=== PATIENT | male | born 1930 | race Caucasian/White ===

== ENCOUNTER 2017-02-10 16:33 | Emergency (ER) | payer MEDICARE ==
[2017-02-10] MEDS ORDERED: ceFAZolin VIAL(*) 1 GM in NS 0.9% 50 ML* 50 ML IVPB ONE (18:01)
--- NOTE | 2017-02-10 18:20 | RAD ---
Indication: Left middle finger injury. 3 views of the middle finger demonstrates comminuted fracture distal tuft of the distal phalanx of the middle finger on the left hand. IMPRESSION: Comminuted fracture of the distal tip of the middle finger of the left hand.
[2017-02-10] MEDS ORDERED: Tetan/Diph/Pertus SYR(Tdap)* 0.5 ML SYR(BOOSTRIX) use SYR IM ONE (19:20)
--- NOTE | 2017-02-10 19:20 | ED ---
Laceration/Wound HPI - HPI Summary HPI Summary: 86M presents with left middle finger laceration s/p getting it caught on table saw. He does not know when last tetanus was. He has full ROM of his finger. He is on plavix. Bleeding is controlled at moment. He denies any numbness or tingling. He has not taken anything for pain. He is currently taking flexeril at home for his shoulder pain. He is right handed. He denies any foreign body in wound. - History of Current Complaint Stated Complaint: FINGER LAC FROM SAW Time Seen by Provider: 02/10/17 17:07 Pain Intensity: 0 - Additional Pertinent History Primary Care Physician: [id number] - Allergy/Home Medications Allergies/Adverse Reactions: Allergies Allergy/AdvReac Type Severity Reaction Status Date / Time No Known Allergies Allergy Verified 03/18/16 22:39 PMH/Surg Hx/FS Hx/Imm Hx Endocrine/Hematology History: Reports: Hx Anticoagulant Therapy, Hx Diabetes - NIDDM Cardiovascular History: Reports: Hx Angina, Hx Coronary Artery Disease, Hx Hypercholesterolemia, Hx Hypertension, Hx Myocardial Infarction, Hx Valvular Heart Disease - AORTIC VALVE STENOSIS, Other Cardiovascular Problems/Disorders - OPEN HEART 1992 STATES TRIPLE BYPASS NO PROBLEMS LAST 20 YRS History: Reports: Hx Kidney Stones - NONE KNOWN NOW Musculoskeletal History: Reports: Hx Arthritis - right ankle, bilateral knee Sensory History: Reports: Hx Cataracts, Hx Contacts or Glasses - reading glasses Denies: Hx Hearing Aid Opthamlomology History: Reports: Hx Cataracts, Hx Contacts or Glasses - reading glasses - Surgical History Surgery Procedure, Year, and Place: [facility]ILD. 1992 OPEN HEART TRIPLE BYPASS [employer]. 1996 TOTAL KNEES CAR [facility]. 2011 L TOTAL HIP [facility]. 2001 CAR [facility] WITH IOL [facility] Hx Anesthesia Reactions: No Infectious Disease History: No Infectious Disease History: Denies: Traveled Outside the [place] in Last 30 Days - Family History Known Family History: Positive: Cardiac Disease - Social History Alcohol Use: Daily Alcohol Amount: 2 beers Substance Use Type: Reports: None Hx Tobacco Use: Yes Smoking Status (MU): Former Smoker Type: Cigarettes Have You Smoked in the Last Year: No Review of Systems Negative: Fever Negative: Chest Pain Negative: Shortness Of Breath Positive: Other - laceration left middle finger All Other Systems Reviewed And Are Negative: Yes Physical Exam Triage Information Reviewed: Yes Vital Signs On Initial Exam: Initial Vitals Temp Pulse Resp BP Pulse Ox 97.7 F 64 20 135/77 98 02/10/17 16:59 02/10/17 16:59 02/10/17 16:59 02/10/17 16:59 02/10/17 16:59 Vital Signs Reviewed: Yes Appearance: Positive: Well-Appearing Skin: Positive: Warm, Dry, Other - 2cm by 1/2cm laceration through distal tip of left middle finger in center of nail Head/Face: Positive: Normal Head/Face Inspection Eyes: Positive: Normal, Conjunctiva Clear Respiratory/Lung Sounds: Positive: Clear to Auscultation, Breath Sounds Present Cardiovascular: Positive: Normal, RRR Musculoskeletal: Positive: Strength/ROM Intact - fingers, Other - good pulses, sensation grossly intact Procedures - Splinting Location: finger splint Pre-Made Type: metal Splint: finger splint - Laceration/Wound Repair 1 Location: Other - left middle finger Description: Irregular Anesthesia: Digital, 1.0% Length, Depth and Shape: 2cm by 1/2 cm laceration of DIP left middle finger on dorsal aspect that wraps to front of finger Betadine Prep?: Yes Irrigated w/ Saline (ccs): 500 Closure: Single Layer Suture Type: Prolene - 4-0 Number of Sutures: 12 Diagnostics - Vital Signs Vital Signs Temp Pulse Resp BP Pulse Ox 02/10/17 17:01 98.2 F 71 20 135/77 96 02/10/17 16:59 97.7 F 64 20 135/77 98 - Laboratory Lab Statement: Any lab studies that have been ordered have been reviewed, and results considered in the medical decision making process. - Radiology finger Xray Interpretation: Positive (See Comments) - IMPRESSION: Comminuted fracture of the distal tip of the middle finger of the left hand. Radiology Interpretation Completed By: Radiologist Laceration Repair Course/Dx - Course Course Of Treatment: 86M presents with laceration from table saw today. has full ROM of finger, laceration goes through center of nail. on plavix. placed 12 sutures into left middle finger laceration through nail to close area as best it could be closed. xray shows communicated fracture. gave dose of ancef and tetanus. told to continue keflex and follow up with primary for fracture and wound check. discussed pain options and due to patient on flexeril will not add anything more for pain. patient understands and agrees with plan - Differential Dx Differental Diagnoses: Abrasion, Avulsion, Fracture, Laceration - Clinical Impression Provider Diagnoses: Laceration of left middle finger, Fracture of finger, distal phalanx, left, open Discharge - Discharge Plan Condition: Good Disposition: HOME Prescriptions: Cephalexin CAP* [Keflex CAP*] 500 mg PO TID #21 cap Patient Education Materials: Care For Your Stitches (ED), Finger Fracture (ED) Referrals: Daniella Emanuel MD [Primary Care Provider] - Vince Sorensen MD [Medical Doctor] - Additional Instructions: Take antibiotic three times a day for 7 days starting tomorrow Keep area in splint, change dressing once a day Keep area clean and dry Take Tylenol for pain every 6 hours Follow up with primary within 7 days Return to ED or primary for suture removal in 10-14 days Return to ED if develop signs of infection such as fever, spreading redness, or pus formation
[2017-02-10 20:30] VITALS: BP 181/86
== END 2017-02-10 20:29 | disposition home or self-care (01) ==
LOC: ED 16:33
DX: S61.213A Laceration without foreign body of left middle finger without damage to nail, initial encounter (principal); W29.8XXA Contact with other powered hand tools and household machinery, initial encounter; Y93.9 Activity, unspecified; Y92.9 Unspecified place or not applicable; Y99.9 Unspecified external cause status
CPT/HCPCS: 12001; 73140; 90471; 90715; 99282; J0690

== ENCOUNTER 2017-06-13 05:49 | Inpatient (IN) | payer MEDICARE ==
--- NOTE | 2017-06-03 14:12 | HP ---
AMENDED REPORT NOW INCLUDES COSIGNER DESIGNATION - ESIGNED BEFORE ADJUSTMENT HISTORY AND PHYSICAL: DATE OF ADMISSION: 06/13/17 PROVIDER: Juan Ridley MD * (DICTATED BY YOLANDA JACKSON) CHIEF COMPLAINT: Right ankle pain. HISTORY OF PRESENT ILLNESS: Mr. Dickson is an 87-year-old gentleman who has had ongoing issues with his right ankle. He has had significant bouts of deformity with end-stage hffs-yy-thuc arthritis changes of the tibiotalar joint. He has also developed lateral stress fracture symptoms along the fibula which has bothered him quite a bit. He is interested in surgical intervention for correction of the problem at this time. PAST MEDICAL HISTORY: Hypertension, hypercholesterolemia, coronary artery disease, history of kidney stones, type 2 diabetes, psoriasis, and gout. PAST SURGICAL HISTORY: Coronary artery bypass in 1992, cardiac catheterization with 2 stents in 2015, bilateral knee replacements, right hip replacement, tonsillectomy, multiple surgeries on left hand, cataract removal with bilateral lens implants. He reports no complications with anesthesia with those procedures. CURRENT MEDICATIONS: 1. [place] 5/325 one tab p.o. q.4 to 6 hours p.r.n. pain. 2. Nitro-Dur 0.1 mg per hour patch every day in the morning, off at night. 3. Lipitor 10 mg 1 p.o. at bedtime. 4. Fish oil 1000 mg 1 tab p.o. b.i.d. 5. Allopurinol 300 mg 1 p.o. daily. 6. Glipizide XL 5 mg 1 p.o. daily. 7. Niacin flush free 120 mg 1 p.o. b.i.d. 8. Aspirin 81 mg 1 p.o. daily. 9. Saw palmetto 450 mg p.o. b.i.d. 10. Glucosamine and chondroitin supplement once daily. 11. Vitamin B12 of 25 mcg 1 p.o. daily. 12. Lisinopril 10 mg 1 p.o. daily. 13. Colace 50 mg 1 tab daily. 14. Nitrostat 0.4 mg tab sublingual every 5 minutes as needed for chest pain. 15. Plavix 75 mg 1 p.o. daily. 16. Magnesium oxide supplement 250 mg p.o. daily. 17. Metoprolol succinate ER 50 mg p.o. daily. FAMILY HISTORY: Positive for colon cancer, coronary artery disease. SOCIAL HISTORY: The patient is a , he lives with his son. He is a retired contractor. He is a former smoker and quit 30 to 40 years ago. He drinks 2 to 3 beers per day. He denies any illicit drug use. He does not exercise. REVIEW OF SYSTEMS: Constitutional: Negative for recent hospitalizations, fevers, chills, night sweats, or unexplained weight loss. Head: Negative for headaches, lightheadedness, balance problems, changes to his vision or hearing, sore throat, or runny nose. Cardiovascular: Negative for chest or arm pain with exertion. Positive for history of heart attack. Negative for heart murmur , heart palpitations. Positive for high blood pressure. Negative for embolism or deep vein thrombosis. Respiratory: Negative for chronic cough, shortness of breath with exertion, asthma, or COPD. Gastrointestinal: Negative for heart burn, nausea, vomiting, diarrhea, constipation, or GERD. Genitourinary: Negative for nighttime urination, frequency of urination, urinary tract infections, or kidney problems. Musculoskeletal: Negative for chronic back pain or recent fracture. Skin: Negative for rashes, lesions, bumps, or sores. Neurologic: Negative for seizure, stroke, epilepsy, depression, or anxiety. Endocrine: Positive for diabetes. Negative for thyroid problems. Hematology: Negative for easy bleeding, bruising, or anemia. PHYSICAL EXAMINATION GENERAL: He is a well-developed, well-nourished elderly male in no acute distress at rest. He is alert and oriented x3 with appropriate mood and affect. VITAL SIGNS: The patient is 5 feet 8, 187 pounds. Blood pressure 114/71, pulse is 64, respirations 17, and temperature 97.5. HEENT: Normocephalic and atraumatic. Hearing and vision are grossly intact. NECK: Trachea is midline. RESPIRATORY: Lungs are clear to auscultation bilaterally. No wheezes, rales, or rhonchi. CARDIOVASCULAR: Regular rate and rhythm. No murmurs, rubs, or gallops appreciated. Normal S1 and S2. ABDOMEN: Soft, nondistended, nontender. Normal bowel sounds. EXTREMITIES: Exam of the right lower extremity, skin is intact without abrasions or open wounds. He has edema throughout the right hind foot and a valgus deformity to a significant degree when he stands. He has very limited motion of the tibiotalar joint. He has full sensation to light touch. He has a thready dorsalis pedis pulse. IMAGING: Standing AP, lateral, and oblique views of the right ankle were obtained and show end-stage valgus arthritic changes of the tibiotalar joint. IMPRESSION: Right ankle osteoarthritis. The patient is to undergo right ankle arthrodesis by Dr. Ridley on 06/13/17. The risks, benefits, and postoperative course were discussed with the patient at length and he would like to proceed. He was given a prescription for a rolling walker for assistance with nonweightbearing. He was given a prescription for oxycodone for postoperative pain. He will follow up in the office 10 to 14 days after surgery. All of his questions were answered to his full satisfaction. He is understanding to call should he develop any problems or concerns. YOLANDA JACKSON [id number]/[facility] #: [id number] CATHERINE
[2017-06-13] MEDS ORDERED: Buffered Lidocaine 0.9% SYRIN* 5 ML/SYR SYRINGE ONE (05:57)
[2017-06-13] MEDS ORDERED: ceFAZolin 2 GM PREMIX (*) 50 ML IVPB ONE (05:57)
[2017-06-13] MEDS ORDERED: Buffered Lidocaine 0.9% SYRIN* 5 ML/SYR SYRINGE INTRADERM ONE (06:00)
[2017-06-13] MEDS ORDERED: Bupivacaine 0.5% SDV PF* 30 ML VIAL ONE (07:06)
[2017-06-13] MEDS ORDERED: fentaNYL* 50 MCG/ML 2 ML VIAL (100 MCG VIAL) ONE ×2 (07:34→09:23)
[2017-06-13] MEDS ORDERED: Propofol* 10 MG/ML 20 ML BTL IV PUSH ONE (07:34)
[2017-06-13] MEDS ORDERED: Lidocaine 2% PF * 5 ML VIAL ONE (07:34)
[2017-06-13] MEDS ORDERED: Ondansetron INJ* 2 MG/ML VIAL IV PRN ×2 (08:08→09:09)
[2017-06-13] MEDS ORDERED: oxyCODONE/Acetamin 5/325 MG* TAB PO PRN (08:08)
[2017-06-13] MEDS ORDERED: DiMENhydriNATE IV* 50 MG/ML VIAL IV PUSH PRN (08:08)
[2017-06-13] MEDS ORDERED: Gelfoam 12-7 ADSORBABL SPONGE* 1 EA SPONGE ONE (08:46)
[2017-06-13] MEDS ORDERED: diPHENhydraMINE IV* 50 MG/ML 1 ml VIAL (BENADRYL) IV PRN (09:09)
[2017-06-13] MEDS ORDERED: Morphine INJ* 2 MG/ML 1 ML CARPUJECT IV PRN (09:09)
[2017-06-13] MEDS ORDERED: Nitroglycerin TAB 0.4 MG* 0.4 MG TAB SL PRN (09:13)
[2017-06-13] MEDS ORDERED: HYDROmorphone INJ* 1 MG/ML CARPUJECT SYRINGE ONE (09:23)
[2017-06-13] MEDS: fentaNYL* 50 MCG/ML 2 ML VIAL (100 MCG VIAL) IV PRN ×2 (09:25→09:47)
[2017-06-13] MEDS: HYDROmorphone INJ* 1 MG/ML CARPUJECT SYRINGE IV PRN ×2 (09:29→10:01)
[2017-06-13] MEDS ORDERED: oxyCODONE/Acetamin 5/325 MG* TAB ONE (09:37)
[2017-06-13] MEDS ORDERED: Morphine INJ* 2 MG/ML 1 ML SYRINGE (TWO MG - NEW SYRINGE VERSION) ONE (11:08)
[2017-06-13] MEDS ORDERED: Morphine INJ* 2 MG/ML 1 ML SYRINGE (TWO MG - NEW SYRINGE VERSION) IV PRN (11:19)
[2017-06-13] MEDS: oxyCODONE TAB* 5 MG TAB PO PRN ×3 (12:02→23:31)
[2017-06-13] MEDS: HYDROmorphone INJ* 2 MG/ML CARPUJECT SYRINGE IV PRN ×2 (14:03→20:22)
[2017-06-13] MEDS: ceFAZolin 1 GM VIAL(*) 1 GM in NS 0.9% 50 ML* 50 ML IVPB SCH ×2 (15:47→23:32)
[2017-06-13] MEDS: Atorvastatin* 10 MG TAB PO SCH (18:01)
[2017-06-13] MEDS: CMCS:OMEGA-3 FATTY ACIDS (NF) 1,000 MG CAP PO SCH (20:22)
[2017-06-13] MEDS: Docusate CAP* 100 MG PO SCH (20:22)
[2017-06-13] MEDS: SAW PALMETTO 450 MG PO SCH (20:24)
[2017-06-13] MEDS: [UNRECOGNIZED DRUG - REMARK] PO SCH (20:24)
[2017-06-13] MEDS ORDERED: Nitroglycerin 0.1 mg/Hr PATCH* (2.5 MG) TRANSDERM SCH (21:00)
--- NOTE | 2017-06-13 22:16 | CONS ---
[facility] MEDICINE CONSULTATION REPORT: DATE OF CONSULT: 06/13/17 ATTENDING PHYSICIAN: Dr. Juan Ridley. CONSULTING PHYSICIAN: Dr. Juan Rogers (dictation provided by Andi Soria NP) . REASON FOR CONSULTATION: Hypertension. HISTORY OF PRESENT ILLNESS: Mr. Dickson is an 87-year-old male with a past medical history of xgn-[id number] diabetes, hypertension, coronary artery disease with CABG and stents, who presented today to the hospital for an elective right ankle surgery due to chronic right ankle pain with arthritis. Mr. Dickson states that prior to coming into surgery, he has been having no acute issues other than his right ankle pain. He states the blood sugar is well controlled. He has no significant chest pain or shortness of breath with activity. In the mini postoperative period, Mr. Dickson was having high blood pressure with systolic blood pressure running in the 170s to 180s. This was in the setting of acute pain. PAST MEDICAL HISTORY: 1. Hypertension. 2. Hypercholesterolemia. 3. Coronary artery disease with CABG and stents x2. 4. History of kidney stones. 5. Type 2 diabetes mno-mtuohsp-[id number]. 6. Psoriasis. 7. Gout. 8. Right hip replacement. 9. Bilateral knee replacements. 10. Multiple surgeries on left hand. 11. Cataract removal with bilateral lens implants. MEDICATIONS: 1. Allopurinol 300 mg p.o. q.a.m. 2. Aspirin 81 mg p.o. daily. 3. Atorvastatin 10 mg p.o. q.p.m. 4. Clopidogrel 75 mg p.o. daily. 5. Cyanocobalamin 1000 mcg p.o. daily. 6. Docusate 50 mg p.o. daily. 7. Glipizide 5 mg p.o. q.a.m. 8. Glucosamine with vitamin complex 1 tab p.o. q.a.m. 9. Magnesium oxide 250 mg p.o. daily. 11. Metoprolol tartrate 25 mg p.o. q.a.m. 10. Niacin with inositol 1200 mg p.o. b.i.d. 11. Nitroglycerin patch 0.1 mg q.12 hours. 12. Nitroglycerin sublingually as needed. 13. Secretary-3 fatty acid 1000 mg p.o. b.i.d. 14. Saw palmetto 450 mg p.o. b.i.d. ALLERGIES: No known drug allergies. FAMILY HISTORY: Positive for colon cancer and coronary artery disease. SOCIAL HISTORY: The patient lives with his son. He is former smoker. No report of alcohol, significant alcohol or drug use. REVIEW OF SYSTEMS: A 14-point review of systems was completed with Mr. Dickson and all those not mentioned above were negative. PHYSICAL EXAM: Vital Signs: Temperature 98.1, pulse rate 75, respiratory rate 16, O2 saturation 97% on room air, blood pressure 173/81. General: Mr. Dickson is sitting in the bed, in no acute distress. Neuro: He is alert. He is oriented x3. He moves all extremities equally. There is no facial asymmetry or focal weakness. Extraocular movements are intact. Heart: S1, S2. No murmur, rub, or gallop and regular. Lungs are clear to auscultation bilaterally with no accessory muscle use and good aeration. The abdomen is soft, nontender with bowel sounds positive x4. Extremities: No cyanosis or edema. Skin is intact. DIAGNOSTIC STUDIES/LAB DATA: Preoperatively on 06/03/17, WBC 6.0, hemoglobin 13.5, hematocrit 40, platelet count 133. Sodium 134, potassium 4.7, chloride 100, serum bicarbonate 25, BUN 8, creatinine 0.77, and glucose 69. ASSESSMENT AND PLAN: Mr. Dickson is an 87-year-old male with past medical history of diabetes and coronary artery disease with CABG and stents, who presents to the hospital today with plan right ankle surgery for arthritic changes and right ankle pain. Our recommendations are as follows: 1. Right ankle surgery: Management per orthopedic services. 2. Hypertension: I suspect his high blood pressure is related to his uncontrolled pain. At the time of my examination, he told me his pain was 15/10 , although he seemed to be resting comfortably and sleeping when I left the room. I reviewed this with the nurse and the patient does have Dilaudid 1 mg IV available q.1 hour. I requested that she assess him and consider giving him an additional dose of Dilaudid now. He just had 1 about an hour ago. We will continue to work prudently and safely to achieve pain control for him and I think that will help with his blood pressure. He is on metoprolol at home, will be continuing that. 3. Type 2 diabetes. Plan to continue glipizide as ordered per Ortho. The patient denies any hypoglycemia that should be discontinued. 4. DVT prophylaxis: Per Ortho. 5. Code status: Full code. TIME SPENT: Approximately 45 minutes were spent in the consultation of this patient, more than half of the time was spent with the patient at the bedside reviewing the events leading up to this hospitalization, performing the physical examination, and reviewing the plan of care. ANDI SORIA NP [id number]/[facility] #: [id number] CATHERINE
[2017-06-13] MEDS ORDERED: NS 0.9% 50 ML* 50 ML ONE (23:30)
--- NOTE | 2017-06-14 01:18 | OP ---
DATE OF OPERATION: 06/13/17 - ROOM #334 DATE OF : [birth year] SURGEON: Juan Ridley MD RUNNING RIGGER: YOLANDA Caballero ANESTHESIOLOGIST: Rangel Chavarria MD ANESTHESIA: General PRE-OP DIAGNOSIS: Right tibiotalar arthrosis. POST-OP DIAGNOSIS: Right tibiotalar arthrosis. OPERATIVE PROCEDURE: Right tibiotalar effusion. DESCRIPTION OF PROCEDURE: The patient was taken to the operating room where a general anesthesia was performed. We made an extensive lateral incision based on the tip of the fibula, full thickness flap raised anteriorly. The tibiotalar joint was prepared for arthrodesis using a lamina pillowcase cutter and a 4 mm power pooja. We harvested bone graft from the distal fibula and performed a distal fibulectomy as well for some cancellous graft. Fixation of the tibiotalar joint consisted of paired 6.5-mm cannulated screws from the talus up to the medial tibial cortex and then proximal lateral to distal medial talus. Fixation intraoperatively was felt to be excellent as well as the alignment. We then irrigated thoroughly, closing laterally with some 0 Vicryl deep sutures, 2- 0 Vicryl subcutaneous, and yesenia for the skin, and a compression dressing and plaster splint. [id number]/[facility] #: [id number] MTDD
[2017-06-14] MEDS: oxyCODONE TAB* 5 MG TAB PO PRN ×3 (05:40→17:37)
[2017-06-14] MEDS: MAGNESIUM OXIDE PO SCH (07:25)
[2017-06-14] MEDS: [UNRECOGNIZED DRUG - OTHER] PO SCH (07:25)
[2017-06-14] MEDS: [UNRECOGNIZED DRUG - REMARK] PO SCH ×2 (07:26→20:08)
--- NOTE | 2017-06-14 07:36 | RAD ---
INDICATION: Right ankle stress fracture, M 19.071 COMPARISONS: April 26, 2017 TECHNIQUE: Fluoroscopy was provided for a surgical procedure. Total fluoroscopy time is: 7.1 seconds FINDINGS: Spot images demonstrate fusion across the tibiotalar articulation IMPRESSION: FLUOROSCOPY WAS PROVIDED FOR A SURGICAL PROCEDURE CPT II Codes: 6045F
[2017-06-14] MEDS: ceFAZolin 1 GM VIAL(*) 1 GM in NS 0.9% 50 ML* 50 ML IVPB SCH (07:53)
[2017-06-14] MEDS: CMCS:OMEGA-3 FATTY ACIDS (NF) 1,000 MG CAP PO SCH ×2 (08:06→20:08)
[2017-06-14] MEDS: Allopurinol TAB* 300 MG PO SCH (08:06)
[2017-06-14] MEDS: glipiZIDE TAB.XL* 5 MG PO SCH (08:06)
[2017-06-14] MEDS: Docusate CAP* 100 MG PO SCH ×2 (08:06→20:08)
[2017-06-14] MEDS: Clopidogrel TAB* 75 MG PO SCH (08:06)
[2017-06-14] MEDS: Cyanocobalamin TAB* 500 MCG PO SCH (08:07)
[2017-06-14] MEDS: SAW PALMETTO 450 MG PO SCH ×2 (08:07→20:08)
[2017-06-14] MEDS: Aspirin Low Dose CHEW TAB* 81 MG PO SCH (08:09)
[2017-06-14] MEDS ORDERED: Metoprolol Tartrate TAB* 25 MG PO SCH (09:00)
[2017-06-14] MEDS ORDERED: Docusate CAP* 100 MG PO SCH (09:00)
--- NOTE | 2017-06-14 12:18 | PN ---
Progress Note - Progress Note Date of Service: 06/14/17 SOAP: Subjective: POD #1 right ankle fusion. States that his pain is much better controlled today. Having difficulty with NWB. Recommended SNF but pt would really prefer to be home with in home PT. Denies CP/SOB, calf pain, fever or chills Objective: Vitals: Temp Pulse Resp BP Pulse Ox 98.4 F 94 16 146/81 95 06/14/17 07:31 06/14/17 07:31 06/14/17 10:16 06/14/17 07:31 06/14/17 09:23 Gen: A&O x3, NAD at rest RLE: Splint C/D/I, +f/e at MTPs. N/V intact Assessment: POD #1 right ankle fusion Plan: Cont with PT/OT, recommended trying rollator walker with hand brakes Possible d/c home tomorrow if doing better with PT
[2017-06-14] MEDS ORDERED: HYDROmorphone INJ* 2 MG/ML CARPUJECT SYRINGE IV PRN (12:20)
--- NOTE | 2017-06-14 15:57 | PN ---
Subjective Date of Service: 06/14/17 Interval History: Patient seen and examined at bedside. Denies fever, chills, shortness of breath , chest discomfort, N/V/D. Pt states that his pain is controlled today. Family History: Unchanged from Admission Social History: Unchanged from Admission Past Medical History: Unchanged from Admission Objective Active Medications: Allopurinol (Zyloprim Tab*) 300 mg PO QAM [facility] Aspirin (Aspirin Low Dose Tab*) 81 mg PO DAILY [facility] Atorvastatin Calcium (Lipitor*) 10 mg PO QPM [facility] Clopidogrel Bisulfate (Plavix Tab*) 75 mg PO DAILY [facility] Cyanocobalamin (Vitamin B12 Tab*) 1,000 mcg PO DAILY [facility] Diphenhydramine HCl (Benadryl Iv*) 25 mg IV Q6H PRN Reason: itching Docusate Sodium (Colace Cap*) 100 mg PO BID [facility] Fish Oil (Fish Oil (Nf)) 1,000 mg PO BID [facility] Glipizide (Glucotrol Xl*) 5 mg PO QAM [facility] Hydromorphone HCl (Dilaudid Inj*) 1 mg IV Q4H PRN Reason: PAIN Lactated Ringer's (Lactated Ringers 1000 Ml Bag*) 1,000 mls @ 75 mls/hr IV PER RATE [facility] Metoprolol Tartrate (Lopressor Tab*) 25 mg PO QAM [facility] Nitroglycerin (Nitroglycerin Tab 0.4 Mg*) 0.4 mg SL Q5M PRN Reason: chest pain Non-Formulary Medication (Icldianhbow-Gft-Otn C-Manganes [Glucosamine Msm Complex]) 1 tab PO QAM [facility] Non-Formulary Medication (Magnesium Oxide (Mg Supplement [Magnesium Oxide]) 250 mg PO DAILY [facility] Non-Formulary Medication (Niacin W/ Inositol [Niacin Flush Free 400-100 Mg]) 1, 200 mg PO BID [facility] Non-Formulary Medication (Saw [place] (Serenoa Repens) [Saw [place]]) 450 mg PO BID [facility] Ondansetron HCl (Zofran Inj*) 4 mg IV Q6H PRN Reason: nausea Oxycodone HCl (Roxycodone Tab*) 10 mg PO Q4H PRN Reason: PAIN - MODERATE TO SEVERE Oxycodone HCl (Roxycodone Tab*) 5 mg PO Q4H PRN Reason: PAIN - MILD Temazepam (Restoril Cap*) 15 mg PO BEDTIME PRN Reason: INSOMNIA Vital Signs 06/13/17 06/13/17 06/13/17 16:53 18:01 19:56 Temperature 97.5 F 98.8 F Pulse Rate 82 85 Respiratory 16 18 16 Rate Blood Pressure 166/87 149/63 (mmHg) O2 Sat by Pulse 98 97 Oximetry 06/13/17 06/13/17 06/13/17 21:22 23:31 23:51 Temperature 98.7 F Pulse Rate 89 Respiratory 16 18 16 Rate Blood Pressure 151/85 (mmHg) O2 Sat by Pulse 94 Oximetry 06/14/17 06/14/17 06/14/17 01:31 03:54 04:48 Temperature 98.4 F Pulse Rate 98 Respiratory 16 16 Rate Blood Pressure 155/70 (mmHg) O2 Sat by Pulse 91 95 Oximetry 06/14/17 06/14/17 06/14/17 05:40 07:31 07:40 Temperature 98.4 F Pulse Rate 94 Respiratory 18 16 16 Rate Blood Pressure 146/81 (mmHg) O2 Sat by Pulse 92 Oximetry 06/14/17 06/14/17 06/14/17 08:00 09:23 10:16 Temperature Pulse Rate Respiratory 16 16 Rate Blood Pressure (mmHg) O2 Sat by Pulse 95 Oximetry 06/14/17 11:20 Temperature 98.2 F Pulse Rate 71 Respiratory 16 Rate Blood Pressure 146/69 (mmHg) O2 Sat by Pulse 97 Oximetry Oxygen Devices in Use Now: None Appearance: NAD, laying in bed Ears/Nose/Mouth/Throat: Mucous Membranes Moist Respiratory: Symmetrical Chest Expansion and Respiratory Effort, Clear to Auscultation Cardiovascular: NL Sounds; No Murmurs; No JVD, RRR Abdominal: NL Sounds; No Tenderness; No Distention Extremities: No Edema Skin: No Rash or Ulcers, - - Splint to right LE clean, dry and intact. Neurological: Alert and Oriented x 3, NL Muscle Strength and Tone Lines/Tubes/Other Access: Clean, Dry and Intact Peripheral IV - site benign Nutrition: Taking PO's Assess/Plan/Problems-Billing Assessment: Mr. Anderson is an 87 yo male with PMH significant for HTN, HLD, CAD, DM, and gout who presented to the hospital for a right ankle fusion with Dr. Ridley on 06/13/17. - Patient Problems (1) Arthrosis of right ankle Code(s): M19.071 - PRIMARY OSTEOARTHRITIS, RIGHT ANKLE AND FOOT SNOMED Code(s) : 444837068 Comment: - S/P right ankle fusion, POD #1 - Management per orthopedics - Continue PT/OT (2) Hypertension Code(s): I10 - ESSENTIAL (PRIMARY) HYPERTENSION SNOMED Code(s): 98245221 Comment: - SBP 140-150's - Continue Metoprolol. (3) Diabetes Code(s): E11.9 - TYPE 2 DIABETES MELLITUS WITHOUT COMPLICATIONS SNOMED Code(s) : 06012166 Comment: - Well-controlled as outpatient. - Continue Glipizide. (4) HLD (hyperlipidemia) Code(s): E78.5 - HYPERLIPIDEMIA, UNSPECIFIED SNOMED Code(s): 45235887 Comment: - Continue statin (5) DVT prophylaxis Code(s): MNL2134 - SNOMED Code(s): 535342755 Comment: - SCDs per Ortho (6) Full code status Code(s): Z78.9 - OTHER SPECIFIED HEALTH STATUS SNOMED Code(s): 969111099 Status and Disposition: Inpatient. Disposition per Orthopedics.
[2017-06-14] MEDS: Atorvastatin* 10 MG TAB PO SCH (17:37)
[2017-06-15] MEDS: oxyCODONE TAB* 5 MG TAB PO PRN ×3 (04:32→15:27)
[2017-06-15] MEDS ORDERED: Metoprolol Tartrate TAB* 25 MG PO ONE (05:00)
[2017-06-15] MEDS: [UNRECOGNIZED DRUG - REMARK] PO SCH ×2 (07:52→20:35)
[2017-06-15] MEDS: [UNRECOGNIZED DRUG - OTHER] PO SCH (07:52)
[2017-06-15] MEDS: MAGNESIUM OXIDE PO SCH (07:52)
[2017-06-15] MEDS: SAW PALMETTO 450 MG PO SCH ×2 (07:53→20:35)
[2017-06-15] MEDS: Clopidogrel TAB* 75 MG PO SCH (08:12)
[2017-06-15] MEDS: CMCS:OMEGA-3 FATTY ACIDS (NF) 1,000 MG CAP PO SCH ×2 (08:13→20:34)
[2017-06-15] MEDS: glipiZIDE TAB.XL* 5 MG PO SCH (08:13)
[2017-06-15] MEDS: Docusate CAP* 100 MG PO SCH ×2 (08:13→20:34)
[2017-06-15] MEDS: Cyanocobalamin TAB* 500 MCG PO SCH (08:13)
[2017-06-15] MEDS: Allopurinol TAB* 300 MG PO SCH (08:13)
[2017-06-15] MEDS: Aspirin Low Dose CHEW TAB* 81 MG PO SCH (08:13)
--- NOTE | 2017-06-15 10:41 | PN ---
Progress Note - Progress Note Date of Service: 06/15/17 SOAP: Subjective: []Patient seen at bedside, RLE elevated on pillows. He denies pain currently. Hopes that he will be able to go home later today. He had had difficulty maintaining NWB status yesterday with PT. Awaiting session today. Objective: [] Vital Signs Temp 99.0 F 06/15/17 07:30 Pulse 64 06/15/17 09:31 Resp 20 06/15/17 08:00 BP 172/69 06/15/17 07:30 Pulse Ox 97 06/15/17 08:00 Intake & Output 06/14/17 06/15/17 06/15/17 18:59 06:59 18:59 Intake Total 210 400 120 Output Total 530 700 400 Balance -320 -300 -280 Intake: Oral 210 400 120 Output: Urine 530 700 400 Other: # Bowel Movements 0 Right ankle splint is dry and intact toes pink and warm with full sensation Assessment: []s/p Right ankle fusion POD #2 Plan: []Await PT assesment today with NWB safety Possible discharge home today if masters PT/OT goals ASA 325 mg daily
--- NOTE | 2017-06-15 17:14 | PN ---
Subjective Date of Service: 06/15/17 Interval History: Patient seen and examined at bedside. Denies fever, chills, shortness of breath , chest discomfort, N/V/D. Pt states that his pain is controlled. Family History: Unchanged from Admission Social History: Unchanged from Admission Past Medical History: Unchanged from Admission Objective Active Medications: Allopurinol (Zyloprim Tab*) 300 mg PO QAM [facility] Aspirin (Aspirin Low Dose Tab*) 81 mg PO DAILY [facility] Atorvastatin Calcium (Lipitor*) 10 mg PO QPM [facility] Clopidogrel Bisulfate (Plavix Tab*) 75 mg PO DAILY [facility] Cyanocobalamin (Vitamin B12 Tab*) 1,000 mcg PO DAILY [facility] Diphenhydramine HCl (Benadryl Iv*) 25 mg IV Q6H PRN Reason: itching Docusate Sodium (Colace Cap*) 100 mg PO BID [facility] Fish Oil (Fish Oil (Nf)) 1,000 mg PO BID [facility] Glipizide (Glucotrol Xl*) 5 mg PO QAM [facility] Hydromorphone HCl (Dilaudid Inj*) 1 mg IV Q4H PRN Reason: PAIN Lactated Ringer's (Lactated Ringers 1000 Ml Bag*) 1,000 mls @ 75 mls/hr IV PER RATE [facility] Metoprolol Tartrate (Lopressor Tab*) 25 mg PO DAILY [facility] Nitroglycerin (Nitroglycerin Tab 0.4 Mg*) 0.4 mg SL Q5M PRN Reason: chest pain Non-Formulary Medication (Tyqejyagohq-Ojc-Kpa C-Manganes [Glucosamine Msm Complex]) 1 tab PO QAM [facility] Non-Formulary Medication (Magnesium Oxide (Mg Supplement [Magnesium Oxide]) 250 mg PO DAILY [facility] Non-Formulary Medication (Niacin W/ Inositol [Niacin Flush Free 400-100 Mg]) 1, 200 mg PO BID [facility] Non-Formulary Medication (Saw Woody (Serenoa Repens) [Saw Woody]) 450 mg PO BID [facility] Ondansetron HCl (Zofran Inj*) 4 mg IV Q6H PRN Reason: nausea Oxycodone HCl (Roxycodone Tab*) 10 mg PO Q4H PRN Reason: PAIN - MODERATE TO SEVERE Oxycodone HCl (Roxycodone Tab*) 5 mg PO Q4H PRN Reason: PAIN - MILD Temazepam (Restoril Cap*) 15 mg PO BEDTIME PRN Reason: INSOMNIA Vital Signs 06/14/17 06/15/17 06/15/17 20:09 00:00 00:22 Temperature 98.2 F 98.6 F Pulse Rate 71 80 Respiratory 18 16 Rate Blood Pressure 132/57 (mmHg) O2 Sat by Pulse 95 95 95 Oximetry 06/15/17 06/15/17 06/15/17 03:23 03:49 04:32 Temperature 98.1 F Pulse Rate 84 Respiratory 20 16 Rate Blood Pressure 172/85 168/86 (mmHg) O2 Sat by Pulse 95 Oximetry 06/15/17 06/15/17 06/15/17 06:32 07:30 08:00 Temperature 99.0 F Pulse Rate 37 Respiratory 16 16 16 Rate Blood Pressure 172/69 (mmHg) O2 Sat by Pulse 97 97 Oximetry 06/15/17 06/15/17 06/15/17 09:31 10:41 11:22 Temperature 97.5 F Pulse Rate 64 65 Respiratory 18 16 Rate Blood Pressure 159/62 (mmHg) O2 Sat by Pulse 97 Oximetry 06/15/17 06/15/17 06/15/17 12:41 15:27 15:59 Temperature 98.2 F Pulse Rate 75 Respiratory 18 18 18 Rate Blood Pressure 154/79 (mmHg) O2 Sat by Pulse 98 Oximetry 06/15/17 16:00 Temperature Pulse Rate Respiratory Rate Blood Pressure (mmHg) O2 Sat by Pulse 98 Oximetry Oxygen Devices in Use Now: None Appearance: NAD, laying in bed Ears/Nose/Mouth/Throat: Mucous Membranes Moist Respiratory: Symmetrical Chest Expansion and Respiratory Effort, Clear to Auscultation Cardiovascular: NL Sounds; No Murmurs; No JVD, RRR Abdominal: NL Sounds; No Tenderness; No Distention Extremities: No Edema Skin: - - Dressing to right ankle clean, dry and intact Neurological: Alert and Oriented x 3, NL Muscle Strength and Tone Lines/Tubes/Other Access: Clean, Dry and Intact Peripheral IV - site benign Nutrition: Taking PO's Assess/Plan/Problems-Billing Assessment: Mr. Anderson is an 87 yo male with PMH significant for HTN, HLD, CAD, DM, and gout who presented to the hospital for a right ankle fusion with Dr. Ridley on 06/13/17. - Patient Problems (1) Arthrosis of right ankle Code(s): M19.071 - PRIMARY OSTEOARTHRITIS, RIGHT ANKLE AND FOOT SNOMED Code(s) : 399618310 Comment: - S/P right ankle fusion, POD #2 - Management per orthopedics - Continue PT/OT - PMRU consult pending (2) Hypertension Code(s): I10 - ESSENTIAL (PRIMARY) HYPERTENSION SNOMED Code(s): 22814049 Comment: - SBP 130-170's - Continue Metoprolol (Increased to 25mg BID, this is his home dose). (3) Diabetes Code(s): E11.9 - TYPE 2 DIABETES MELLITUS WITHOUT COMPLICATIONS SNOMED Code(s) : 95456233 Comment: - Well-controlled as outpatient. - Continue Glipizide. (4) HLD (hyperlipidemia) Code(s): E78.5 - HYPERLIPIDEMIA, UNSPECIFIED SNOMED Code(s): 71927727 Comment: - Continue statin (5) DVT prophylaxis Code(s): DUF4069 - SNOMED Code(s): 133338208 Comment: - SCDs per Ortho (6) Full code status Code(s): Z78.9 - OTHER SPECIFIED HEALTH STATUS SNOMED Code(s): 121642621 Status and Disposition: Inpatient. Disposition per Orthopedics.
[2017-06-15] MEDS: Atorvastatin* 10 MG TAB PO SCH (17:41)
[2017-06-15] MEDS: Metoprolol Tartrate TAB* 25 MG PO SCH (20:34)
[2017-06-16] MEDS: Temazepam CAP* 15 MG PO PRN ×2 (00:28→23:41)
[2017-06-16] MEDS: [UNRECOGNIZED DRUG - REMARK] PO SCH ×2 (07:33→20:23)
[2017-06-16] MEDS: MAGNESIUM OXIDE PO SCH (07:33)
[2017-06-16] MEDS: [UNRECOGNIZED DRUG - OTHER] PO SCH (07:33)
[2017-06-16] MEDS: SAW PALMETTO 450 MG PO SCH ×2 (07:34→20:23)
[2017-06-16] MEDS: Cyanocobalamin TAB* 500 MCG PO SCH (07:41)
[2017-06-16] MEDS: glipiZIDE TAB.XL* 5 MG PO SCH (07:41)
[2017-06-16] MEDS: Clopidogrel TAB* 75 MG PO SCH (07:41)
[2017-06-16] MEDS: Aspirin Low Dose CHEW TAB* 81 MG PO SCH (07:41)
[2017-06-16] MEDS: Docusate CAP* 100 MG PO SCH ×2 (07:41→20:21)
[2017-06-16] MEDS: Metoprolol Tartrate TAB* 25 MG PO SCH ×2 (07:41→20:21)
[2017-06-16] MEDS: Allopurinol TAB* 300 MG PO SCH (07:41)
[2017-06-16] MEDS: oxyCODONE TAB* 5 MG TAB PO PRN ×4 (07:42→23:40)
[2017-06-16] MEDS: CMCS:OMEGA-3 FATTY ACIDS (NF) 1,000 MG CAP PO SCH ×2 (07:43→20:22)
[2017-06-16] MEDS ORDERED: Metoprolol Tartrate TAB* 25 MG PO SCH (09:00)
--- NOTE | 2017-06-16 09:41 | PN ---
Progress Note - Progress Note Date of Service: 06/16/17 SOAP: Subjective: []Patient seen at bedside, foolt elevated on pillows. Pain is minimal. Has not had a BM but no abdominal pain. Doing well overall and hopes for rehab bed offer today. Objective: [] Vital Signs Temp 99.3 F 06/16/17 07:30 Pulse 79 06/16/17 07:30 Resp 16 06/16/17 07:42 BP 186/90 06/16/17 07:30 Pulse Ox 100 06/16/17 07:30 Intake & Output 06/15/17 06/16/17 06/16/17 18:59 06:59 18:59 Intake Total 550 100 Output Total 1000 600 Balance -450 -500 Intake: Oral 550 100 Output: Urine 1000 600 Other: Estimated Void Large # Voids 1 Right ankle splint remains dry and intact toes with some edema but full sensation and circulation Assessment: []s/p right ankle fusion POD #3 Plan: []Continue NWB RLE Senna and Miralax ordered Await rehab bed offer
[2017-06-16] MEDS: Senna TAB PO PRN (10:43)
[2017-06-16] MEDS: Polyethylene Glycol 3350* 17 GM PACKET PO PRN (10:43)
--- NOTE | 2017-06-16 18:02 | PN ---
Subjective Date of Service: 06/16/17 Interval History: Patient seen and examined at bedside. Denies fever, chills, shortness of breath , chest discomfort, N/V/D. Pt states that his pain is controlled. Pt is unsure of why he was taken off his lisinopril and HCTZ. Family History: Unchanged from Admission Social History: Unchanged from Admission Past Medical History: Unchanged from Admission Objective Active Medications: Allopurinol (Zyloprim Tab*) 300 mg PO QAM [facility] Aspirin (Aspirin Low Dose Tab*) 81 mg PO DAILY [facility] Atorvastatin Calcium (Lipitor*) 10 mg PO QPM [facility] Clopidogrel Bisulfate (Plavix Tab*) 75 mg PO DAILY [facility] Cyanocobalamin (Vitamin B12 Tab*) 1,000 mcg PO DAILY [facility] Diphenhydramine HCl (Benadryl Iv*) 25 mg IV Q6H PRN Reason: itching Docusate Sodium (Colace Cap*) 100 mg PO BID [facility] Fish Oil (Fish Oil (Nf)) 1,000 mg PO BID [facility] Reason: Protocol Glipizide (Glucotrol Xl*) 5 mg PO QAM [facility] Hydromorphone HCl (Dilaudid Inj*) 1 mg IV Q4H PRN Reason: PAIN Lactated Ringer's (Lactated Ringers 1000 Ml Bag*) 1,000 mls @ 75 mls/hr IV PER RATE [facility] Metoprolol Tartrate (Lopressor Tab*) 25 mg PO BID [facility] Nitroglycerin (Nitroglycerin Tab 0.4 Mg*) 0.4 mg SL Q5M PRN Reason: chest pain Non-Formulary Medication (Mylgvwifcld-Xeh-Fae C-Manganes [Glucosamine Msm Complex]) 1 tab PO QAM [facility] Non-Formulary Medication (Magnesium Oxide (Mg Supplement [Magnesium Oxide]) 250 mg PO DAILY [facility] Non-Formulary Medication (Niacin W/ Inositol [Niacin Flush Free 400-100 Mg]) 1, 200 mg PO BID [facility] Non-Formulary Medication (Saw [place]once (Serenoa Repens) [Saw Ponce]) 450 mg PO BID [facility] Ondansetron HCl (Zofran Inj*) 4 mg IV Q6H PRN Reason: nausea Oxycodone HCl (Roxycodone Tab*) 10 mg PO Q4H PRN Reason: PAIN - MODERATE TO SEVERE Oxycodone HCl (Roxycodone Tab*) 5 mg PO Q4H PRN Reason: PAIN - MILD Polyethylene Glycol/Electrolytes (Miralax*) 17 gm PO DAILY PRN Reason: CONSTIPATION Senna (Senokot Tab*) 1 tab PO DAILY PRN Reason: CONSTIPATION Temazepam (Restoril Cap*) 15 mg PO BEDTIME PRN Reason: INSOMNIA Vital Signs 06/15/17 06/15/17 06/16/17 19:05 20:09 00:00 Temperature 98.1 F Pulse Rate 84 Respiratory 16 18 Rate Blood Pressure 159/78 (mmHg) O2 Sat by Pulse 98 97 Oximetry 06/16/17 06/16/17 06/16/17 00:27 03:25 07:30 Temperature 98.0 F 97.5 F 99.3 F Pulse Rate 74 72 79 Respiratory 16 16 20 Rate Blood Pressure 156/86 156/86 186/90 (mmHg) O2 Sat by Pulse 97 97 100 Oximetry 06/16/17 06/16/17 06/16/17 07:42 08:00 09:42 Temperature Pulse Rate Respiratory 16 16 18 Rate Blood Pressure (mmHg) O2 Sat by Pulse 100 Oximetry 06/16/17 06/16/17 06/16/17 11:35 12:40 14:40 Temperature 98.0 F Pulse Rate 67 Respiratory 16 18 18 Rate Blood Pressure 153/62 (mmHg) O2 Sat by Pulse 99 Oximetry 06/16/17 06/16/17 15:14 16:11 Temperature 98.5 F Pulse Rate 72 Respiratory 18 Rate Blood Pressure 173/82 (mmHg) O2 Sat by Pulse 99 98 Oximetry Oxygen Devices in Use Now: None Appearance: NAD, laying in bed Ears/Nose/Mouth/Throat: Mucous Membranes Moist Respiratory: Symmetrical Chest Expansion and Respiratory Effort, Clear to Auscultation Cardiovascular: NL Sounds; No Murmurs; No JVD, RRR Abdominal: NL Sounds; No Tenderness; No Distention Extremities: No Edema Skin: No Rash or Ulcers, - - Splint to right LE clean, dry and intact Neurological: Alert and Oriented x 3, NL Muscle Strength and Tone Nutrition: Taking PO's Assess/Plan/Problems-Billing Assessment: Mr. Anderson is an 87 yo male with PMH significant for HTN, HLD, CAD, DM, and gout who presented to the hospital for a right ankle fusion with Dr. Ridley on 06/13/17. - Patient Problems (1) Arthrosis of right ankle Code(s): M19.071 - PRIMARY OSTEOARTHRITIS, RIGHT ANKLE AND FOOT SNOMED Code(s) : 477917396 Comment: - S/P right ankle fusion, POD #3 - Management per orthopedics, NWB right LE - Continue PT/OT - PMRU consult, no bed offer at this time - Plan for SNF (2) Hypertension Code(s): I10 - ESSENTIAL (PRIMARY) HYPERTENSION SNOMED Code(s): 69611044 Comment: - SBP 150-180's - Pt was taken off his HCTZ and Lisinopril in 02/2017 d/t hyponatremia - Continue Metoprolol (Increased to 25mg BID, this is his home dose). - Start amlodipine (3) Diabetes Code(s): E11.9 - TYPE 2 DIABETES MELLITUS WITHOUT COMPLICATIONS SNOMED Code(s) : 31752548 Comment: - Well-controlled as outpatient. - Continue Glipizide. (4) HLD (hyperlipidemia) Code(s): E78.5 - HYPERLIPIDEMIA, UNSPECIFIED SNOMED Code(s): 49790386 Comment: - Continue statin (5) DVT prophylaxis Code(s): LLI1308 - SNOMED Code(s): 485323420 Comment: - SCDs per Ortho (6) Full code status Code(s): Z78.9 - OTHER SPECIFIED HEALTH STATUS SNOMED Code(s): 758127905 Status and Disposition: Inpatient. Disposition per Orthopedics. Thank you for this consultation, will sign off at this time. Please call with any questions.
[2017-06-16] MEDS: Atorvastatin* 10 MG TAB PO SCH (18:09)
[2017-06-16] MEDS: amLODIPine TAB* 5 MG PO SCH (20:21)
[2017-06-17] MEDS: MAGNESIUM OXIDE PO SCH (07:23)
[2017-06-17] MEDS: [UNRECOGNIZED DRUG - OTHER] PO SCH (07:23)
[2017-06-17] MEDS: [UNRECOGNIZED DRUG - REMARK] PO SCH ×2 (07:23→20:48)
[2017-06-17] MEDS: SAW PALMETTO 450 MG PO SCH ×2 (07:24→20:48)
[2017-06-17] MEDS: Polyethylene Glycol 3350* 17 GM PACKET PO PRN (08:42)
[2017-06-17] MEDS: Clopidogrel TAB* 75 MG PO SCH (08:42)
[2017-06-17] MEDS: Metoprolol Tartrate TAB* 25 MG PO SCH ×2 (08:42→20:47)
[2017-06-17] MEDS: amLODIPine TAB* 5 MG PO SCH (08:42)
[2017-06-17] MEDS: Allopurinol TAB* 300 MG PO SCH (08:42)
[2017-06-17] MEDS: Aspirin Low Dose CHEW TAB* 81 MG PO SCH (08:42)
[2017-06-17] MEDS: glipiZIDE TAB.XL* 5 MG PO SCH (08:42)
[2017-06-17] MEDS: Cyanocobalamin TAB* 500 MCG PO SCH (08:42)
[2017-06-17] MEDS: oxyCODONE TAB* 5 MG TAB PO PRN ×2 (08:42→16:39)
[2017-06-17] MEDS: Docusate CAP* 100 MG PO SCH ×2 (08:42→20:47)
[2017-06-17] MEDS: CMCS:OMEGA-3 FATTY ACIDS (NF) 1,000 MG CAP PO SCH ×2 (08:42→20:47)
--- NOTE | 2017-06-17 09:36 | PN ---
Progress Note - Progress Note Date of Service: 06/17/17 SOAP: Subjective: []Patient sitting at edge of bed getting ready to work with PT and transfer to . His foot is minimally painful. He reports that there will be a bed available Tuesday for rehab in [place]. He offers no constitutional complaints. Objective: [] Vital Signs Temp 97.9 F 06/17/17 07:22 Pulse 65 06/17/17 07:22 Resp 18 06/17/17 08:42 BP 156/75 06/17/17 07:22 Pulse Ox 99 06/17/17 08:00 Intake & Output 06/16/17 06/17/17 06/17/17 18:59 06:59 18:59 Intake Total 230 905 Output Total 200 400 500 Balance 30 505 -500 Intake: Oral 230 905 Output: Urine 200 400 500 Right foot splint remains clean and dry toes remain edematous full sensation and circulation Assessment: []s/p Right ankle fusion POD #4 Plan: []Await rehab bed availability-Tuesday [facility] Follow up with Dr. Ridley in about 1 week or as scheduled after d/c Tuesday.
[2017-06-17] MEDS: Atorvastatin* 10 MG TAB PO SCH (16:39)
[2017-06-17] MEDS: Senna TAB PO PRN (20:49)
[2017-06-17] MEDS ORDERED: Calcium Carbonate CHEW TAB* 500 MG (TUMS) PO PRN (23:34)
[2017-06-18] MEDS: Temazepam CAP* 15 MG PO PRN (00:50)
[2017-06-18] MEDS ORDERED: Bisacodyl SUPP* 10 MG SUPP PR ONE (08:39)
[2017-06-18] MEDS: CMCS:OMEGA-3 FATTY ACIDS (NF) 1,000 MG CAP PO SCH ×2 (09:11→20:34)
[2017-06-18] MEDS: Allopurinol TAB* 300 MG PO SCH (09:11)
[2017-06-18] MEDS: Metoprolol Tartrate TAB* 25 MG PO SCH ×2 (09:11→20:34)
[2017-06-18] MEDS: Clopidogrel TAB* 75 MG PO SCH (09:11)
[2017-06-18] MEDS: Aspirin Low Dose CHEW TAB* 81 MG PO SCH (09:11)
[2017-06-18] MEDS: glipiZIDE TAB.XL* 5 MG PO SCH (09:11)
[2017-06-18] MEDS: Docusate CAP* 100 MG PO SCH ×2 (09:11→20:35)
[2017-06-18] MEDS: Cyanocobalamin TAB* 500 MCG PO SCH (09:11)
[2017-06-18] MEDS: amLODIPine TAB* 5 MG PO SCH (09:12)
[2017-06-18] MEDS: oxyCODONE TAB* 5 MG TAB PO PRN (09:12)
[2017-06-18] MEDS: Polyethylene Glycol 3350* 17 GM PACKET PO PRN (09:12)
[2017-06-18] MEDS: SAW PALMETTO 450 MG PO SCH ×2 (09:17→20:38)
[2017-06-18] MEDS: MAGNESIUM OXIDE PO SCH (09:17)
[2017-06-18] MEDS: [UNRECOGNIZED DRUG - OTHER] PO SCH (09:17)
[2017-06-18] MEDS: [UNRECOGNIZED DRUG - REMARK] PO SCH ×2 (09:17→20:38)
--- NOTE | 2017-06-18 09:34 | PN ---
Progress Note - Progress Note Date of Service: 06/18/17 SOAP: Subjective: Pt sitting comfortably on the edge of the bed, eating breakfast. No complaint of pain. Objective: Splint clean, dry and intact. Sensation intact to light touch Vital Signs: Temp Pulse Resp BP Pulse Ox 98.1 F 73 16 153/74 96 06/18/17 07:48 06/18/17 07:48 06/18/17 09:12 06/18/17 07:48 06/18/17 07:48 Laboratory Last Values POC Glucose (mg/dL) 111 mg/dL (70-100) H 06/13/17 06:05 Assessment: s/p right ankle fusion POD #5 Plan: Pending D/C Tuesday - [facility]
[2017-06-18] MEDS: Atorvastatin* 10 MG TAB PO SCH (18:09)
[2017-06-19] MEDS: Temazepam CAP* 15 MG PO PRN (00:06)
[2017-06-19] MEDS: oxyCODONE TAB* 5 MG TAB PO PRN ×4 (01:58→20:58)
--- NOTE | 2017-06-19 08:57 | PN ---
Progress Note - Progress Note Date of Service: 06/19/17 SOAP: Subjective: Pt lying comfortably in bed. No complaint of pain. Objective: Splint clean, intact. Wiggles toes. Sensation intact to light touch distally Vital Signs: Temp Pulse Resp BP Pulse Ox 97.9 F 67 18 148/69 100 06/19/17 07:30 06/19/17 07:30 06/19/17 07:54 06/19/17 07:30 06/19/17 07:30 Laboratory Last Values POC Glucose (mg/dL) 111 mg/dL (70-100) H 06/13/17 06:05 Assessment: s/p right ankle fusion POD #6 Plan: [facility] Pending D/C to [facility]
[2017-06-19] MEDS: Aspirin Low Dose CHEW TAB* 81 MG PO SCH (10:27)
[2017-06-19] MEDS: Allopurinol TAB* 300 MG PO SCH (10:27)
[2017-06-19] MEDS: CMCS:OMEGA-3 FATTY ACIDS (NF) 1,000 MG CAP PO SCH ×2 (10:27→20:58)
[2017-06-19] MEDS: Clopidogrel TAB* 75 MG PO SCH (10:27)
[2017-06-19] MEDS: Docusate CAP* 100 MG PO SCH ×2 (10:28→20:58)
[2017-06-19] MEDS: Metoprolol Tartrate TAB* 25 MG PO SCH ×2 (10:28→20:58)
[2017-06-19] MEDS: glipiZIDE TAB.XL* 5 MG PO SCH (10:28)
[2017-06-19] MEDS: Cyanocobalamin TAB* 500 MCG PO SCH (10:28)
[2017-06-19] MEDS: amLODIPine TAB* 5 MG PO SCH (10:28)
[2017-06-19] MEDS: MAGNESIUM OXIDE PO SCH (10:33)
[2017-06-19] MEDS: [UNRECOGNIZED DRUG - OTHER] PO SCH (10:33)
[2017-06-19] MEDS: [UNRECOGNIZED DRUG - REMARK] PO SCH ×2 (10:33→21:18)
[2017-06-19] MEDS: SAW PALMETTO 450 MG PO SCH ×2 (10:33→21:19)
[2017-06-19] MEDS: Atorvastatin* 10 MG TAB PO SCH (17:28)
[2017-06-20] MEDS: Temazepam CAP* 15 MG PO PRN (00:27)
[2017-06-20 08:20] VITALS: BP 156/69
[2017-06-20] MEDS: Aspirin Low Dose CHEW TAB* 81 MG PO SCH (08:42)
[2017-06-20] MEDS: Allopurinol TAB* 300 MG PO SCH (08:42)
[2017-06-20] MEDS: Docusate CAP* 100 MG PO SCH (08:42)
[2017-06-20] MEDS: amLODIPine TAB* 5 MG PO SCH (08:42)
[2017-06-20] MEDS: Cyanocobalamin TAB* 500 MCG PO SCH (08:42)
[2017-06-20] MEDS: oxyCODONE TAB* 5 MG TAB PO PRN (08:43)
[2017-06-20] MEDS: Clopidogrel TAB* 75 MG PO SCH (08:43)
[2017-06-20] MEDS: Metoprolol Tartrate TAB* 25 MG PO SCH (08:43)
[2017-06-20] MEDS: CMCS:OMEGA-3 FATTY ACIDS (NF) 1,000 MG CAP PO SCH (08:43)
[2017-06-20] MEDS: glipiZIDE TAB.XL* 5 MG PO SCH (08:43)
[2017-06-20] MEDS: [UNRECOGNIZED DRUG - OTHER] PO SCH (08:45)
[2017-06-20] MEDS: SAW PALMETTO 450 MG PO SCH (08:46)
[2017-06-20] MEDS: [UNRECOGNIZED DRUG - REMARK] PO SCH (08:46)
[2017-06-20] MEDS: MAGNESIUM OXIDE PO SCH (08:46)
--- NOTE | 2017-06-20 10:43 | DS ---
DATE OF ADMISSION: 06/13/2017. DATE OF DISCHARGE: 06/20/2017. ATTENDING PHYSICIAN: Dr. Juan Ridley* (dictated by YOLANDA Mcclure). ADMITTING DIAGNOSIS: Primary osteoarthritis right ankle and foot. CONSULTATIONS: Occupational Therapy and Physical Therapy. HISTORY OF PRESENT ILLNESS: Mr. Dickson is an 87-year-old gentleman who has had an ongoing issue with his right ankle. 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 He has also developed lateral stress fracture symptoms along the fibula which has bothered him quite a bit. He has failed conservative treatment and he underwent a right ankle arthrodesis by Dr. Ridley on 06/13/2017. HOSPITAL COURSE: The patient was admitted to [facility] on 2016 and underwent a right ankle arthrodesis with no complications. The patient recovered briefly on the PACU and was transferred to the Short Stay Surgical Unit in stable condition. On postop day number one, the pain was well- controlled. He was having difficulty with nonweightbearing and he was recommended to try rolling walker with hand brakes. On postop day number two, the pain continued to be controlled with Oxycodone. On postop day number three , the patient continued to not have a bowel movement at this time, but he was without pain. Senna and MiraLax were ordered at this time. He was continued with nonweightbearing of the right lower extremity. On postop day number four, bowel movement had been achieved. A bed was found at [place]. Pain was again well-controlled with Oxycodone. On postop day number five, he continued with nonweightbearing, PT, and OT. On postop day number six, again nonweightbearing right lower extremity and PT and OT. Discharged to [place] on postop day number seven. The patient's pain was well- controlled and found to be stable for discharge on postop day number seven. Throughout the hospital course, vital signs remained stable. The patient was afebrile. DISCHARGE CONDITION: Good. DISCHARGE MEDICATIONS: New medications: 1. Aspirin 325 to prevent blood clots. 2. Continue with Plavix 75 mg one p.o. daily. Home medications: 1. Howe 5/325. 2. Nitro-Dur 0.1 mg per hour patch every day in the morning, off at night. 3. Lipitor 10 mg one p.o. at bedtime. 4. Fish oil 1000 mg one tab p.o. b.i.d. 5. Allopurinol 300 mg one p.o. daily. 6. Glipizide XL 5 mg one p.o. daily. 7. Niacin Flush Free 120 mg 1 p.o. b.i.d. 8. Saw [place] 450 mg p.o. b.i.d. 9. Glucosamine and Chondroitin supplement once daily. 10. Vitamin B12 25 mcg one p.o. daily. 11. Lisinopril 10 mg one p.o. daily. 12. Colace 50 mg once daily. 13. Nitrostat 0.4 mg tab sublingual every 5 minutes as needed for chest pain. 14. Magnesium Oxide supplement 250 mg p.o. daily. 15. Metoprolol ER 50 mg p.o. daily. DISCHARGE INSTRUCTIONS: 1. Discharge today to [facility] for rehab. 2. Elevate leg on pillow several times a day. 3. Keep right ankle splint clean and dry. 4. Continue nonweightbearing of the right lower extremity. 5. Aspirin 325 mg daily to help prevent blood clots. 6. Plavix 75 daily, again to prevent blood clots. 7. Follow-up with Dr. Ridley in the office in 10 to 14 days. YOLANDA MCCLURE [id number]/[facility] #: [id number] CATHERINE
== END 2017-06-20 10:05 | DRG 494 ==
LOC: AA 05:49 → SSU 11:02
PROVIDERS: ADMIT Orthopaedic Surgery; ATTEND Orthopaedic Surgery
PROC: 0SGF04Z Fusion of Right Ankle Joint with Internal Fixation Device, Open Approach (ICD-10-PCS; principal; 2017-06-13 07:30)
DX: M19.071 Primary osteoarthritis, right ankle and foot (principal); E11.9 Type 2 diabetes mellitus without complications; I11.9 Hypertensive heart disease without heart failure; Z95.1 Presence of aortocoronary bypass graft; E78.00 Pure hypercholesterolemia, unspecified; I25.10 Atherosclerotic heart disease of native coronary artery without angina pectoris; Z95.5 Presence of coronary angioplasty implant and graft; L40.9 Psoriasis, unspecified; M10.9 Gout, unspecified; Z96.653 Presence of artificial knee joint, bilateral; Z96.641 Presence of right artificial hip joint; Z79.01 Long term (current) use of anticoagulants; Z79.82 Long term (current) use of aspirin; Z79.899 Other long term (current) drug therapy; Z80.0 Family history of malignant neoplasm of digestive organs; Z82.49 Family history of ischemic heart disease and other diseases of the circulatory system; Z87.891 Personal history of nicotine dependence; Z79.84 Long term (current) use of oral hypoglycemic drugs; K59.00 Constipation, unspecified
CPT/HCPCS: 76000; 93005; 94760; A9270-GY; C1713; C1776; J0690; J1170; J2270; J2704; J3010